=== PATIENT | male | born 1955 | race Caucasian/White ===

== ENCOUNTER 2022-06-19 09:45 | Observation (INO) | payer MEDICARE, OTHER ==
[~2022-06-19] VITALS: Ht 185.4 cm; Wt 101.0 kg
[2022-06-19 10:03] LABS: BASO # 0.1 K/mm3 (0.0-0.2); BASO % 0.7 % (0.0-2.0); EOS # 0.6 K/mm3 (0.0-0.7); EOS % 6.6 % (0.0-4.0); GRAN # 5.8 K/mm3 (1.4-6.5); GRAN % 61.4 % (42.2-75.2); LYMPH # 2.2 K/mm3 (1.2-3.4); LYMPH % 23.3 % (20.0-51.0); MEAN CELL VOLUME 95 fl (80.0-100.0); MEAN CORPUSCULAR HGB CONC 35 g/dl (33.0-37.0); MEAN PLATELET VOLUME 10.5 fl (7.4-10.4); MONO # 0.7 K/mm3 (0.1-0.6); MONO % 7.8 % (1.7-9.3); PLATELET COUNT 195 K/mm3 (130-400); RED BLOOD COUNT 5.58 M/mm3 (4.20-5.60); REDCELL DISTRIBUTION WIDTH-CV 13.5 % (11.5-14.5)
[2022-06-19 10:05] LABS: HEMATOCRIT 52.8 % (42.0-52.0); HEMOGLOBIN 18.6 g/dl (13.5-18.0); MEAN CORPUSCULAR HEMOGLOBIN 33 pg (27-31)
[2022-06-19 10:19] LABS: PARTIAL THROMBOPLASTIN TIME 32.3 SECONDS (26.0-37.0)
[2022-06-19 10:23] LABS: ALBUMIN 4.3 gm/dL (3.4-4.8); BILIRUBIN,TOTAL 1.2 mg/dL (0.2-1.2); CALCIUM 9.7 mg/dL (8.4-10.2); POTASSIUM 3.7 mmol/L (3.5-4.5); TOTAL PROTEIN 7.3 gm/dL (6.2-8.1)
[2022-06-19 10:28] LABS: TROPONIN-I 0.022 ng/mL (0.00-0.033)
[2022-06-19 10:48] LABS: COLLECTION METHOD CLEAN CATCH
[2022-06-19 11:05] LABS: SQUAMOUS EPITHELIAL None Seen /hpf (0-10); URINE BACTERIA None Seen /hpf (NONE SEEN); URINE RBC 0-2 /hpf (0-2); URINE WBC 0-2 /hpf (0-2)
[2022-06-19 11:06] LABS: PH 5.5 (5.0-8.5); URINE APPEARANCE Clear (CLEAR/HAZY); URINE COLOR Yellow (YELLOW); URINE GLUCOSE 3+ (NEGATIVE); URINE PROTEIN(semi-quant) Negative (NEGATIVE)
[2022-06-19 11:07] LABS: URINE BLOOD Negative (NEGATIVE); URINE KETONE Negative (NEGATIVE); URINE NITRATE Negative (NEGATIVE); URINE UROBILINOGEN 0.2 E.U/dL (0.2-1.0)
[2022-06-19 13:45] VITALS: BP 142/87; PULSE 51; TEMP 98.2
[2022-06-19 14:00] VITALS: BP_SYST 142
--- NOTE | 2022-06-19 14:10 | NUR ---
Patient arrived to the unit, alert and oriented x 4, VSS, hypertensive. He has left faciat droop. Assesment intake done.,
[2022-06-19] MEDS ORDERED: ASPIRIN E.C. 8181 MG PO (14:13)
[2022-06-19] MEDS ORDERED: FORT1000TA PO (14:14)
[2022-06-19] MEDS ORDERED: LIPITOR20 MG PO (14:15)
[2022-06-19] MEDS ORDERED: NORVASC 10MG10 MG PO (14:15)
[2022-06-19] MEDS ORDERED: NEURONTIN100 MG/CAP PO (14:16)
[2022-06-19] MEDS ORDERED: B-12 500 MCG PO (14:17)
[2022-06-19] MEDS ORDERED: MULTI VITAMINS1 TAB PO (14:18)
[2022-06-19] MEDS ORDERED: COZAAR 50MG50 MG/TAB PO (14:32)
[2022-06-19] MEDS ORDERED: JARDIANCE10 (14:34)
[2022-06-19] MEDS ORDERED: ZYRTEC 10MG10 MG PO (14:35)
[2022-06-19] MEDS ORDERED: LIPITOR 40MG TA40 MG PO (15:44)
[2022-06-19] MEDS ORDERED: PLAVIX 75MG TAB75 MG PO (15:45)
[2022-06-19] MEDS ORDERED: PREDNISONE10 MG PO (15:52)
--- NOTE | 2022-06-19 16:07 | NUR ---
Patient was provided with discharge information, all questions answered. IV access and telemetry were discontinued. Pt was accompanied to the ER entrance.
== END 2022-06-19 16:08 | disposition home or self-care (01) ==
LOC: COL.ER 09:45 → MEDICAL 10:44
PROVIDERS: Emergency Medicine; ADMIT Internal Medicine
DX: R29.810 Facial weakness (principal); E78.5 Hyperlipidemia, unspecified; E11.9 Type 2 diabetes mellitus without complications; I10 Essential (primary) hypertension; F17.290 Nicotine dependence, other tobacco product, uncomplicated; Z79.84 Long term (current) use of oral hypoglycemic drugs; Z79.899 Other long term (current) drug therapy
CPT/HCPCS: G0378; Q9967